=== PATIENT | female | born 1970 | race Caucasian/White ===

== ENCOUNTER 2018-11-28 16:00 | Emergency (ER) | payer MEDICAID, OTHER ==
[~2018-11-28] VITALS: Ht 167.6 cm; Wt 113.4 kg
[2018-11-28] MEDS ORDERED: LIDOCAINE 1% INJ 20 ML 20 ML VIAL ONE (16:35)
--- NOTE | 2018-11-28 16:40 | ED Upper Extremity ---
General Chief Complaint: Laceration Stated Complaint: ELBOW LACERATION Source: patient History of Present Illness Date Seen by Provider: Nov 28, 2018 Time Seen by Provider: 16:37 Initial Comments pt was trying to catch some falling objects? fell onto left arm, hit dorsal elbow causing laceration uses arm normally Allergies and Home Medications Allergies Coded Allergies: Penicillins (Verified Allergy, Unknown, 11/28/18) Patient Home Medication List Home Medication List Reviewed: Yes Review of Systems Constitutional: no symptoms reported Musculoskeletal: other (only concern is cut on back of left elbow) All Other Systems Reviewed Negative Unless Noted: Yes Physical Exam Vital Signs Vital Signs - First Documented 11/28/18 16:26 Temp 99.0 Pulse 91 Resp 18 B/P (MAP) 160/68 (98) Pulse Ox 96 O2 Delivery Room Air Capillary Refill : Height, Weight, BMI Height: '" Weight: lbs. oz. kg; BMI Method: General Appearance: WD/WN, no apparent distress HEENT: PERRL/EOMI Neck: non-tender Cardiovascular: regular rate, rhythm Respiratory: lungs clear elbow is without swelling has FROM ortho exam normal has 2.5 cm full thickness lac over dorsal aspect Procedures/Interventions Wound Location: Upper Extremities Wound Length (cm): 2.5 Wound Explored: clean Irrigated w/ Saline (ccs): 150 Anesthesia: 1% Lidocaine Suture: Ethlion Suture Size: 4-0 Number of Sutures: 4 Progress/Results/Core Measures Results/Orders My Orders Orders - ASHLEY CRESPO MD Lidocaine 1% Inj 20 Ml (Xylocaine 1% Inj (11/28/18 16:35) Vital Signs/I&O 11/28/18 16:26 Temp 99.0 Pulse 91 Resp 18 B/P (MAP) 160/68 (98) Pulse Ox 96 O2 Delivery Room Air Departure Impression Primary Impression: Laceration of left elbow Qualified Codes: S51.012A - Laceration without foreign body of left elbow, initial encounter Disposition: 01 HOME, SELF-CARE Condition: Improved Departure-Patient Inst. Decision time for Depature: 16:53 Referrals: DEMARCO MCKEON MD (PCP/Family) Primary Care Physician stitches should be removed in 10 days Patient Instructions: Laceration Repair With Stitches (DC) ASHLEY CRESPO MD Nov 28, 2018 16:40
[2018-11-28] MEDS ORDERED: LIDOCAINE 1% INJ 20 ML 20 ML VIAL INJ ONE (17:00)
[2018-11-28] MEDS ORDERED: TETANUS,DIPTH,PERTUSS P/F (BOOSTRIX) 0.5 ML VIAL IM ONE (17:00)
[2018-11-28 17:15] VITALS: BP 160/68
== END 2018-11-28 17:15 | disposition home or self-care (01) ==
LOC: ER FS 16:03
DX: S51.012A Laceration without foreign body of left elbow, initial encounter (principal); Z23 Encounter for immunization; Z88.0 Allergy status to penicillin; W20.8XXA Other cause of strike by thrown, projected or falling object, initial encounter
CPT/HCPCS: 12001; 90715